=== PATIENT | female | born 1965 | race Caucasian/White ===

== ENCOUNTER 2017-08-11 12:26 | Inpatient (IN) | payer SELFPAY ==
[~2017-08-11] VITALS: Ht 157.5 cm; Wt 106.3 kg
[2017-08-11 12:30] VITALS: BP 142/74; PULSE 78; RESP 16; TEMP 97.6; O2SAT 95
--- NOTE | 2017-08-11 13:13 | PD ---
HPI Chief Complaint: Psychiatric Symptoms Time Seen by Provider: 13:11 Travel History International Travel<30 days: No Contact w/Intl Traveler<30days: No History of Present Illness HPI Patient comes in under a [place] act by police for reportedly making suicidal statements. Patient denies any suicidal or homicidal ideations at this time. Patient denies any medical complaints at this time. Denies any chest pain, shortness breath, fevers, no pain, nausea, vomiting, or loss or change in bowel or bladder. Patient reports she is a diabetic, anxiety, and has hypothyroidism. Patient reports she takes her medications as directed. Denies anything making her symptoms better or worse. PFSH Past Medical History Anxiety: Yes Depression: Yes Diabetes: Yes Thyroid Disease: Yes Social History Tobacco Use: No Allergies-Medications (Allergen,Severity, Reaction): Coded Allergies: No Known Allergies (Unverified , 08/11/17) Reported Meds & Prescriptions Reported Meds & Active Scripts Active Reported [Sugar Med] [Htn] Review of Systems Except as stated in HPI: all other systems reviewed are Neg Physical Exam Narrative GENERAL: Well-developed, overly nourished, in no acute distress, and non-ill appearing. SKIN: Focused skin assessment warm and dry. HEAD: Atraumatic. Normocephalic. EYES: Pupils equal and round. EOMI. No scleral icterus. No injection or drainage. ENT: No nasal bleeding or discharge. Mucous membranes pink and moist. NECK: Trachea midline. Supple. No nuclear rigidity. CARDIOVASCULAR: Regular rate and rhythm. No murmur appreciated. RESPIRATORY: No accessory muscle use. No respiratory distress. Clear to auscultation. Breath sounds equal bilaterally. MUSCULOSKELETAL: No obvious deformities. No clubbing. No cyanosis. No edema. Full range of motion. NEUROLOGICAL: Awake and alert. No obvious cranial nerve deficits. Motor grossly within normal limits. Normal speech. PSYCHIATRIC: Appropriate mood and affect; insight and judgment normal. Data Data Last Documented VS Vital Signs Date Time Temp Pulse Resp B/P (MAP) Pulse Ox O2 Delivery O2 Flow Rate FiO2 08/11/17 12:30 97.6 78 16 142/74 (96) 95 Orders Orders Complete Blood Count With Diff (08/11/17 12:54) Comprehensive Metabolic Panel (08/11/17 12:54) Psych Screen (08/11/17 12:54) Drug Screen, Random Urine (08/11/17 12:54) Alcohol (Ethanol) (08/11/17 12:54) Salicylates (Aspirin) (08/11/17 12:54) Tylenol (Acetaminophen) (08/11/17 12:54) Urinalysis - C+S If Indicated (08/11/17 14:42) Diet Regular Basic (08/11/17 Dinner) Labs Laboratory Tests Test 08/11/17 13:35 08/11/17 15:00 White Blood Count 14.6 TH/MM3 Red Blood Count 4.83 MIL/MM3 Hemoglobin 14.2 GM/DL Hematocrit 43.2 % Mean Corpuscular Volume 89.4 FL Mean Corpuscular Hemoglobin 29.4 PG Mean Corpuscular Hemoglobin Concent 32.9 % Red Cell Distribution Width 14.4 % Platelet Count 340 TH/MM3 Mean Platelet Volume 7.5 FL Neutrophils (%) (Auto) 65.9 % Lymphocytes (%) (Auto) 24.3 % Monocytes (%) (Auto) 7.9 % Eosinophils (%) (Auto) 1.4 % Basophils (%) (Auto) 0.5 % Neutrophils # (Auto) 9.6 TH/MM3 Lymphocytes # (Auto) 3.5 TH/MM3 Monocytes # (Auto) 1.2 TH/MM3 Eosinophils # (Auto) 0.2 TH/MM3 Basophils # (Auto) 0.1 TH/MM3 CBC Comment DIFF FINAL Differential Comment Blood Urea Nitrogen 13 MG/DL Creatinine 0.81 MG/DL Random Glucose 195 MG/DL Total Protein 8.0 GM/DL Albumin 3.1 GM/DL Calcium Level 9.4 MG/DL Alkaline Phosphatase 111 U/L Aspartate Amino Transf (AST/SGOT) 21 U/L Alanine Aminotransferase (ALT/SGPT) 33 U/L Total Bilirubin 0.5 MG/DL Sodium Level 133 MEQ/L Potassium Level 3.6 MEQ/L Chloride Level 99 MEQ/L Carbon Dioxide Level 23.1 MEQ/L Anion Gap 11 MEQ/L Estimat Glomerular Filtration Rate 74 ML/MIN Salicylates Level LESS THAN 1.7 MG/DL Acetaminophen Level LESS THAN 2.0 MCG/ML Ethyl Alcohol Level LESS THAN 3 MG/DL Urine Color YELLOW Urine Turbidity CLEAR Urine pH 6.5 Urine Specific [place] 1.011 Urine Protein 30 mg/dL Urine Glucose (UA) NEG mg/dL Urine Ketones NEG mg/dL Urine Occult Blood TRACE Urine Nitrite NEG Urine Bilirubin NEG Urine Urobilinogen LESS THAN 2.0 MG/DL Urine Leukocyte Esterase NEG Urine RBC LESS THAN 1 /hpf Urine WBC LESS THAN 1 /hpf Urine Squamous Epithelial Cells 1 /hpf Urine Hyaline Casts 4 /lpf Microscopic Urinalysis Comment CULT NOT INDICATED MDM Medical Decision Making Medical Screen Exam Complete: Yes Emergency Medical Condition: Yes Differential Diagnosis Homicidal, suicidal, electrolyte abnormality, uncontrolled diabetes, other Narrative Course Patient was seen and examined. Labs were obtained and reviewed with exception of a urine drug screen that has not resulted yet. Suspect a slightly elevated white blood cell count to be stress-induced. Patient medically cleared for further treatment and evaluation by psych. Final disposition per psych. Diagnosis Primary Impression: Medical clearance for psychiatric admission Condition: Stable Kevin Stinson Aug 11, 2017 13:13
[2017-08-11 13:59] LABS: AUTOMATED NEUTROPHIL # 9.6 TH/MM3 (1.8-7.7); BASOPHIL # 0.1 TH/MM3 (0-0.2); BASOPHIL % 0.5 % (0.0-2.0); EOSINOPHIL # 0.2 TH/MM3 (0-0.4); EOSINOPHIL % 1.4 % (0.0-4.0); HEMATOCRIT 43.2 % (35.0-46.0); HEMO FLAGS DIFF FINAL; LYMPH % 24.3 % (9.0-44.0); LYMPHOCYTE # 3.5 TH/MM3 (1.0-4.8); MEAN CELL VOLUME 89.4 FL (80.0-100.0); MEAN CORPUSCULAR HEMOGLOBIN 29.4 PG (27.0-34.0); MEAN CORPUSCULAR HGB CONC 32.9 % (32.0-36.0); MONO % 7.9 % (0.0-8.0); NEUT % 65.9 % (16.0-70.0); PLATELET COUNT 340 TH/MM3 (150-450); RED BLOOD COUNT 4.83 MIL/MM3 (4.00-5.30); RED CELL DISTRIBUTION WIDTH 14.4 % (11.6-17.2); WHITE BLOOD COUNT 14.6 TH/MM3 (4.0-11.0)
[2017-08-11 14:23] LABS: ALT (GPT) 33 U/L (10-53); ANION GAP 11 MEQ/L (5-15); AST (GOT) 21 U/L (15-37); BICARBONATE 23.1 MEQ/L (21.0-32.0); BLOOD UREA NITROGEN 13 MG/DL (7-18); CHLORIDE 99 MEQ/L (98-107); GLOMERULAR FILTRATION RATE 74 ML/MIN (>89); POTASSIUM 3.6 MEQ/L (3.5-5.1); SODIUM (NA) 133 MEQ/L (136-145)
[2017-08-11 14:24] LABS: ALCOHOL LESS THAN 3 MG/DL (0-5)
[2017-08-11 14:25] LABS: ALKALINE PHOSPHATASE 111 U/L (45-117); TOTAL BILIRUBIN ADULT 0.5 MG/DL (0.2-1.0)
[2017-08-11 14:48] LABS: ACETAMINOPHEN LESS THAN 2.0 MCG/ML (10.0-30.0)
[2017-08-11] MEDS ORDERED: HTN (15:23)
[2017-08-11] MEDS ORDERED: SUGAR MED (15:23)
[2017-08-11 15:50] LABS: BLOOD, URINE TRACE (NEG); COMMENT (UR) CULT NOT INDICATED; CULTURE IF INDICATED CULT NOT INDICATED; GLUCOSE,URINE NEG (NEG); HYALINE CAST, URINE 4 /lpf (RARE); KETONE, URINE NEG (NEG); NITRITE,URINE NEG (NEG); PH, URINE 6.5 (5.0-8.5); SQUAMOUS EPITHELIAL CELL URINE 1 /hpf (0-5); URINE COLOR YELLOW (YELLW/STRAW)
[2017-08-11 18:33] VITALS: BP 178/88; PULSE 62; RESP 18; O2SAT 93
[2017-08-11] MEDS ORDERED: cloNIDine HCL 0.1 MG TAB PO ONE (21:45)
[2017-08-11 21:59] VITALS: BP_SYST 220; BP_SYST 225; BP_DIAS 110; BP_DIAS 125; PULSE 160; RESP 18
[2017-08-12] VITALS (7 sets, daily range): BP systolic 96–210; BP diastolic 57–110; PULSE 56–71; RESP 16–18; TEMP 97.6–98; O2SAT 94–97
[2017-08-12] MEDS ORDERED: cloNIDine HCL 0.2 MG TAB PO ONE (00:30)
--- NOTE | 2017-08-12 11:06 | PD ---
History of Present Illness Chief Complaint: Psychiatric Symptoms Time Seen by Provider: 10:30 Travel History International Travel<30 Days: No Contact w/Intl Traveler<30days: No Known affected area: No Legal Status Legal Status: [place] Act [place] Act Signed By: Latricia Ruelas History of Present Illness: History of Present Illness HPI Patient is a 52 year old Nepalese female who speaks some Togolese with history of depression who comes in under a [place] act initiated by police. The [place] act alleges that notes were found in a hotel room that were written by the patient. These notes stated " You do not need to bury , I am leaving voluntarily. Who knows maybe there, where my family may meet me". She indicated to the police that she was suicidal and had thoughts hanging herself. EMR reviewed. No previous contact with [facility] psychiatry. Patient is alert female who speaks mostly Nepalese. She was asked if she wanted to use the fire support specialist and she declined. Dressed in hospital gown somewhat unkempt appearance.Affect is depressed. She admits to feeling depressed , low energy, sleeping all day, crying episodes, suicdal ideation and having ruminative thoughts which she describes as " memories of life". These memories include the of her father in 1987 from a heart attack, the suicide of her twin sister in 1997, the departure of her adopted son at age 19 years, possibly deported back to [place]. She also talks about not being able to have a child and having an .Recent stressors include the loss of her job in July. Patient does not appear to be responding to internal stimuli. She continues to endorse suicidal ideation and feeling unsafe if she were to be discharged. She reports that she takes medications but none are listed on her home medication. She tells me she [facility] " [facility]". [facility] Past Medical History Anxiety: Yes Depression: Yes Diabetes: Yes Patient Takes Glucophage: No (UNKNOWN) Thyroid Disease: Yes Tetanus Vaccination: Unknown ?: Not Past Surgical History Cholecystectomy: Yes Psychiatric History Psychiatric History Hx Psychiatric Treatment: DEPRESSION PER PATIENT History of Inpatient Treatment: No Guns or firearms in home: No Social History Born in [place]. In [place] since 2002. Prior to this was living in [place]. . Lives with . Unemployed. has worked in retail for many years. Hx Alcohol Use: No Hx Tobacco Use: No Hx Substance Use: No (PT DENIES) Hx of Substance Use Treatment: No Family Psychiatric History Twin sister completed suicide. Allergies-Medications (Allergen,Severity, Reaction): Coded Allergies: No Known Allergies (Unverified , 08/11/17) Reported Meds & Prescriptions Reported Meds & Active Scripts Active Reported [Sugar Med] [Htn] Review of Systems Ears, nose, mouth, throat: COMPLAINS OF: Vertigo Psychiatric: COMPLAINS OF: Depression, Suicidal Ideation Mental Status Examination Appearance: Appropriate, Disheveled Consciousness: Alert Orientation: x4 Motor Activity: Normal gait Speech: Other (language is Nepalese. ) Language: Adequate Fund of Knowledge: Adequate Attention and Concentration: Other (decreased concentration) Memory: Unremarkable Mood: Sad, Anxious, Other (depressed) Affect: Sad Thought Process & Associations: Intact Thought Content: Appropriate Hallucination Type: None Delusion Type: None Suicidal Ideation: Yes Suicidal Plan: Yes Suicidal Intention: Yes Homicidal Ideation: No Homicidal Plan: No Homicidal Intention: No Insight: Fair Judgment: Impulsive MDM Medical Decision Making Medical Record Reviewed: Yes Assessment/Plan Patient is a 52 year old Nepalese female who speaks some Togolese with history of depression who comes in under a [place] act initiated by police. The [place] act alleges that notes were found in a hotel room that were written by the patient. These notes stated " You do not need to bury , I am leaving voluntarily. Who knows maybe there, where my family may meet me". She indicated to the police that she was suicidal and had thoughts hanging herself. Patient continues to endorse symptoms of depression including depressed mood, crying episodes, increased sleep, ruminative thoughts, suicidal ideation. Although she tells me she is taking mediations none are listed on her medication list. Patient unable to contract for safety and requires inpatient treatment for further observation, initiation of medication and to maintain her safety. Orders Orders Complete Blood Count With Diff (08/11/17 12:54) Comprehensive Metabolic Panel (08/11/17 12:54) Psych Screen (08/11/17 12:54) Drug Screen, Random Urine (08/11/17 12:54) Alcohol (Ethanol) (08/11/17 12:54) Salicylates (Aspirin) (08/11/17 12:54) Tylenol (Acetaminophen) (08/11/17 12:54) Urinalysis - C+S If Indicated (08/11/17 14:42) Diet Regular Basic (08/11/17 Dinner) Clonidine (Catapres) (08/11/17 21:45) Clonidine (Catapres) (08/12/17 00:30) Diet Diabetic (08/12/17 Breakfast) Diet Regular Basic (08/12/17 Lunch) Results Vital Signs Date Time Temp Pulse Resp B/P (MAP) Pulse Ox O2 Delivery O2 Flow Rate FiO2 08/12/17 06:14 98.0 71 18 96/57 (70) 94 Room Air 08/12/17 04:09 71 18 115/71 (86) 08/12/17 02:00 18 08/12/17 01:44 56 18 181/86 (117) 08/12/17 00:30 59 08/12/17 00:05 56 210/110 (143) 08/11/17 21:59 160 18 225/125 (158) Room Air 220/110 (146) 08/11/17 18:33 62 18 178/88 (118) 93 Room Air 08/11/17 12:30 97.6 78 16 142/74 (96) 95 Laboratory Tests Test 08/11/17 13:35 08/11/17 15:00 08/11/17 20:15 White Blood Count 14.6 Red Blood Count 4.83 Hemoglobin 14.2 Hematocrit 43.2 Mean Corpuscular Volume 89.4 Mean Corpuscular Hemoglobin 29.4 Mean Corpuscular Hemoglobin Concent 32.9 Red Cell Distribution Width 14.4 Platelet Count 340 Mean Platelet Volume 7.5 Neutrophils (%) (Auto) 65.9 Lymphocytes (%) (Auto) 24.3 Monocytes (%) (Auto) 7.9 Eosinophils (%) (Auto) 1.4 Basophils (%) (Auto) 0.5 Neutrophils # (Auto) 9.6 Lymphocytes # (Auto) 3.5 Monocytes # (Auto) 1.2 Eosinophils # (Auto) 0.2 Basophils # (Auto) 0.1 CBC Comment DIFF FINAL Differential Comment Blood Urea Nitrogen 13 Creatinine 0.81 Random Glucose 195 Total Protein 8.0 Albumin 3.1 Calcium Level 9.4 Alkaline Phosphatase 111 Aspartate Amino Transf (AST/SGOT) 21 Alanine Aminotransferase (ALT/SGPT) 33 Total Bilirubin 0.5 Sodium Level 133 Potassium Level 3.6 Chloride Level 99 Carbon Dioxide Level 23.1 Anion Gap 11 Estimat Glomerular Filtration Rate 74 Salicylates Level LESS THAN 1.7 Acetaminophen Level LESS THAN 2.0 Ethyl Alcohol Level LESS THAN 3 Urine Color YELLOW Urine Turbidity CLEAR Urine pH 6.5 Urine Specific [place] 1.011 Urine Protein 30 Urine Glucose (UA) NEG Urine Ketones NEG Urine Occult Blood TRACE Urine Nitrite NEG Urine Bilirubin NEG Urine Urobilinogen LESS THAN 2.0 Urine Leukocyte Esterase NEG Urine RBC LESS THAN 1 Urine WBC LESS THAN 1 Urine Squamous Epithelial Cells 1 Urine Hyaline Casts 4 Microscopic Urinalysis Comment CULT NOT INDICATED Urine Opiates Screen NEG Urine Barbiturates Screen NEG Urine Amphetamines Screen NEG Urine Benzodiazepines Screen NEG Urine Cocaine Screen NEG Urine Cannabinoids Screen NEG Diagnosis Primary Impression: Medical clearance for psychiatric admission Additional Impression: Adjustment disorder with depressed mood Admitting Information Admitting Physician Requests: Admit Condition: Stable Problem Qualifiers Marii Land [facility] Aug 12, 2017 11:06
[2017-08-12] MEDS ORDERED: FURO1TAB60 PO (11:20)
[2017-08-12] MEDS ORDERED: AMLO10TA2 PO (11:20)
[2017-08-12] MEDS ORDERED: LISI10TA3 PO (11:20)
[2017-08-12] MEDS ORDERED: LEVO125T4 PO (11:20)
[2017-08-12] MEDS ORDERED: METF500T PO (11:20)
[2017-08-12] MEDS ORDERED: POTA-163 PO (11:20)
[2017-08-12] MEDS ORDERED: ALUMINUM/MAGNESIUM/SIMETH 30 ML CUP PO PRN (11:45)
[2017-08-12] MEDS ORDERED: MAGNESIUM HYDROXIDE SUSP 30 ML CUP PO PRN (11:45)
[2017-08-12] MEDS ORDERED: ACETAMINOPHEN 325 MG TAB PO PRN (11:45)
[2017-08-12] MEDS ORDERED: GLUCAGON 1 MG/ML VIAL OTHER PRN (14:30)
[2017-08-12] MEDS ORDERED: DEXTROSE 50% IN WATER 50 ML SYRINGE IV PUSH PRN (14:30)
[2017-08-12] MEDS: INSULIN ASPART SUPPLEMENTAL SCALE SQ SCH ×2 (17:00→20:24)
[2017-08-12] MEDS: metFORMIN HCL 500 MG TAB PO SCH (17:44)
[2017-08-13] MEDS: LEVOTHYROXINE SODIUM 125 MCG TAB PO SCH (05:15)
[2017-08-13 06:40] VITALS: BP 156/77; PULSE 55; RESP 18; TEMP 97.8; O2SAT 98
[2017-08-13] MEDS: INSULIN ASPART SUPPLEMENTAL SCALE SQ SCH ×4 (07:45→20:00)
[2017-08-13] MEDS: metFORMIN HCL 500 MG TAB PO SCH ×2 (08:34→18:08)
[2017-08-13] MEDS: LISINOPRIL 10 MG TAB PO SCH (08:34)
--- NOTE | 2017-08-13 08:53 | EKG ---
Date Performed: 08/13/2017 Time Performed: 07:34:06 PTAGE: 52 years EKG: SINUS BRADYCARDIA WITH FIRST DEGREE AV BLOCK LOW QRS VOLTAGE IN PRECORDIAL LEADS ABNORMAL E CG NO PREVIOUS TRACING DOCTOR: Keanu Vogt Interpretating Date/Time 08/13/2017 08:52:58
[2017-08-13] MEDS ORDERED: FUROSEMIDE 40 MG TAB PO SCH (09:00)
[2017-08-13] MEDS ORDERED: POTASSIUM CHLORIDE 20 MEQ CONTROLLED RELEASE TAB PO SCH (09:00)
[2017-08-13 10:22] LABS: ANION GAP 11 MEQ/L (5-15); BICARBONATE 26.6 MEQ/L (21.0-32.0); BLOOD UREA NITROGEN 18 MG/DL (7-18); CHLORIDE 99 MEQ/L (98-107); GLOMERULAR FILTRATION RATE 67 ML/MIN (>89); POTASSIUM 3.6 MEQ/L (3.5-5.1); SODIUM (NA) 137 MEQ/L (136-145)
[2017-08-13 10:51] LABS: HDL CHOLESTEROL 38.4 MG/DL (40.0-60.0); LDL CHOLESTEROL 116 MG/DL (0-99)
--- NOTE | 2017-08-13 11:25 | PD.PN.STU ---
Subjective Remarks Pt is a 52 y.o pleasant Chilean female who is at the inpatient psychiatric unit under heath act for "possible SI". Pt was brought in by Bibiana ALVAREZ after finding her in her hotel room, bent over the bathroom sink "feeling sick". Pt states that she has had a hx of depression >20 years. She reports losing all her family members within 5 years of her coming to the [facility] , 25 years ago. Her twin sister committed suicide which put a huge emotional toll on patient. After her sister's suicide she started taking medication for depression which she stopped taking several years after because " I didn't need them anymore". Pt has a 35 y.o son in [facility] which she does not see as often as she'd like. She currently lives with her . She reports losing a job that she has had for 8 years. After losing her job her depression became worse. Pt currently denies any suicidal or homicidal ideation. Also denies any auditory, or visual hallucinations. She states" I just want to feel better before being able to go home". Upon interview patient had depressed mood which was congruent with her affect. Objective Vitals Vital Signs Date Time Temp Pulse Resp B/P (MAP) Pulse Ox O2 Delivery O2 Flow Rate FiO2 08/13/17 06:40 97.8 55 18 156/77 (103) 98 08/12/17 17:47 08/12/17 13:53 97.6 68 16 105/60 (75) 97 Manual Cuff/Auscultation Result Diagram: 08/11/17 1335 08/13/17 0825 A/P Assessment and Plan 1. Major Depression Disorder- start patient on SSRI- refer to outpatient psychiatry 2. Insulin dependent DM - managed by PCP 3. HTN- managed by PCP Discharge Planning once stable, refer patient to outpatient psychiatric facility. educate pt on importance of adherence to medication contact 911 or refer to the ED if thoughts of suicide occur Tom Perez M3 Aug 13, 2017 11:25
--- NOTE | 2017-08-13 11:38 | PD.CONS ---
HPI Service [facility] Hospitalists Consult Requested By Psychiatric services Reason for Consult Medical management Primary Care Physician Unknown Diagnoses: History of Present Illness Written by Monse Muir, acting as scribe for Dr. Gibson on 08/13/17 at 11:26. This is a 52-year-old Ukrainian female with a past medical history of hypertension , diabetes and hypothyroidism who was admitted under [place] act with depression and suicidal ideation to the inpatient psychiatric unit. Hospitalist services have been consulted for medical management. Patient seen and examined. Patient states she felt "not so good". She reports dizziness, loss of balance and difficulty with walking which has been progressive over the past week. She states she's had increased depression and sleeping more. She also reports headaches and chills. She denies any complaints of chest pain, cough or shortness of breath. She denies any nausea, vomiting or abdominal pain. She denies any urinary complaints, diarrhea or constipation. She does report decreased sensation in the lower legs which she attributes to her diabetes. Review of Systems Except as stated in HPI: all other systems reviewed are Neg Past Family Social History Allergies: Coded Allergies: No Known Allergies (Unverified , 08/11/17) Past Medical History Hypertension Diabetes Hypothyroidism Depression Anxiety Past Surgical History Cholecystectomy Reported Medications Amlodipine 10 mg by mouth daily Lisinopril 10 mg by mouth daily Potassium chloride 20 mEq by mouth daily Furosemide 40 mg by mouth daily Metformin 500 mg by mouth twice a day Levothyroxine 125 g by mouth daily Active Ordered Medications Current Medications Medications (Trade) Dose Ordered Sig/Giovanny Route Start Time Stop Time Status Last Admin (Tylenol) 650 mg Q4H PRN PO 08/12/17 11:45 (Milk Of Magnesia Liq) 30 ml DAILY PRN PO 08/12/17 11:45 (Mag-Al Plus Susp Liq) 30 ml Q6H PRN PO 08/12/17 11:45 (Norvasc) 10 mg DAILY PO 08/13/17 09:00 08/13/17 08:34 (Lasix) 40 mg DAILY PO 08/13/17 09:00 08/13/17 08:34 (Synthroid) 125 mcg DAILY@0600 PO 08/13/17 06:00 08/13/17 05:15 (Prinivil) 10 mg DAILY PO 08/13/17 09:00 08/13/17 08:34 (Glucophage) 500 mg BIDPC PO 08/12/17 18:00 08/13/17 08:34 (KCl) 20 meq DAILY PO 08/13/17 09:00 08/13/17 08:34 (D50w (Syr) Inj) 50 ml UNSCH PRN IV PUSH 08/12/17 14:30 (Glucagon Inj) 1 mg UNSCH PRN OTHER 08/12/17 14:30 (NovoLOG SUPPLEMENTAL SCALE) 1 ACHS SLIDING SCALE SQ 08/12/17 17:00 08/12/17 17:00 Family History Father, age 46, [place] Plan sister, age 36, suicide Mother, age 54, CAD and diabetes Social History Patient reports tobacco use of 2-3 cigarettes per day. She reports rare alcohol consumption. She denies any illicit drug use. Physical Exam Vital Signs Vital Signs Date Time Temp Pulse Resp B/P (MAP) Pulse Ox O2 Delivery O2 Flow Rate FiO2 08/13/17 06:40 97.8 55 18 156/77 (103) 98 08/12/17 17:47 08/12/17 13:53 97.6 68 16 105/60 (75) 97 Manual Cuff/Auscultation Physical Exam GENERAL: This is a well-nourished, well-developed obese patient, in no apparent distress. Awake and alert. Appears comfortable at present. SKIN: No rashes, ecchymoses or lesions. Cool and dry. HEAD: Atraumatic. Normocephalic. No temporal or scalp tenderness. EYES: Pupils equal round and reactive. Extraocular motions intact. No scleral icterus. No injection or drainage. ENT: Nose without bleeding, purulent drainage. Throat without erythema, tonsillar hypertrophy or exudate. Uvula midline. Airway patent. NECK: Trachea midline. No lymphadenopathy. Supple, nontender, no meningeal signs. CARDIOVASCULAR: Regular rate and rhythm without murmurs, gallops, or rubs. RESPIRATORY: Clear to auscultation. Breath sounds equal bilaterally. No wheezes , rales, or rhonchi. GASTROINTESTINAL: Abdomen soft, nondistended. (+) Mild tenderness to deep palpation right upper quadrant. No hepato-splenomegaly, or palpable masses. No guarding. MUSCULOSKELETAL: Extremities without clubbing, cyanosis, or edema. No joint tenderness, effusion, or edema noted. No calf tenderness. NEUROLOGICAL: Awake and alert. Able to move all extremities spontaneously. Nonfocal. Normal speech. Laboratory Laboratory Tests Test 08/13/17 08:25 Blood Urea Nitrogen 18 Creatinine 0.88 Random Glucose 133 Calcium Level 9.7 Sodium Level 137 Potassium Level 3.6 Chloride Level 99 Carbon Dioxide Level 26.6 Anion Gap 11 Estimat Glomerular Filtration Rate 67 Triglycerides Level 362 Cholesterol Level 227 LDL Cholesterol 116 HDL Cholesterol 38.4 Cholesterol/HDL Ratio 5.91 Vitamin B12 Level 535 25-Hydroxy Vitamin D Total 6.8 Thyroid Stimulating Hormone 3rd Gen 4.480 Result Diagram: 08/11/17 1335 08/13/17 0825 Assessment and Plan Assessment and Plan 52-year-old Ukrainian female with a past medical history of hypertension, diabetes and hypothyroidism who was admitted under [place] act with depression and suicidal ideation to the inpatient psychiatric unit. Hospitalist services have been consulted for medical management. Depression Suicidal ideation Anxiety - Management per psychiatric team Hypertension - Patient continued on her home medications of amlodipine 10 mg daily, Lisinopril 10 mg daily and Lasix 40 mg daily - Continue potassium chloride 20 mg once daily - Monitor BP Diabetes - Hemoglobin A1c pending - Diabetic heart healthy diet - Continue patient on metformin 500 mg twice a day - Accu-Chek - Insulin sliding scale Leukocytosis - Suspect stress, reactive - Patient is afebrile - UA is negative - Patient does not appear septic - Repeat CBC to monitor white count RUQ pain - Mild - ? Significance - Will obtain LFTs - Monitor Hyponatremia - Resolved Hypothyroidism - Continue patient on home dose of levothyroxine - TSH 4.480 Dyslipidemia - ASCVD 10 yr risk 25% with recommendation of high intensity statin therapy - Will discuss beginning treatment with patient as well as lifestyle modification - Obtain LFTs Ongoing tobaccoism - Discussed importance of smoking cessation Vitamin D deficiency - Begin oral supplementation - Patient will need to have vitamin D level rechecked by her PCP in 3 months Thank you kindly for this consultation. Will continue to follow patient along with you. This note was transcribed by anmol Muir. I, Dr. Pawan Gibson personally performed the history, physical exam, and medical decision making; and confirmed the accuracy of the information in the transcribed note. Authenticated by Dr. Pawan Gibson on 08/13/17 at 13:28. Discussed Condition With Patient Monse Muir Aug 13, 2017 11:38 Pawan Gibson MD Aug 13, 2017 13:28
[2017-08-13] MEDS: busPIRone HCL 10 MG TAB PO SCH ×2 (12:58→20:24)
[2017-08-13] MEDS: DULoxetine HCl DR 60 MG CAP PO SCH (12:58)
--- NOTE | 2017-08-13 12:59 | HHI.HP ---
Provisional Diagnosis Admission Date Aug 12, 2017 at 11:40 Levels I. Major depressive disorder severe recurrent without psychosis F 33.2 Certification of Person's Competence To Provide Express and Informed Consent I have personally examined Yesi Wick , a [facility] on, Aug 13, 2017 12:32. Express and informed consent means consent voluntarily given in writing, by a competent person, after sufficient explanation and disclosure of the subject matter involved to enable the person to make a knowing and willful decision without any element of force, fraud, deceit, duress, or other form of constraint or coercion. This person is 18 years of age or older, is not now known to be incompetent to consent to treatment with a guardian advocate, and does not have a health care surrogate or proxy currently making medical treatment decisions. I have found this person to be one of the following: ] Competent to provide express and informed consent, as defined above, for voluntary admission to this facility and is competent to provide express and informed consent for treatment. He/she has the consistent capacity to make well reasoned, willful, and knowing decisions concerning his or her medical or mental health treatment. The person fully and consistently understands the purpose of the admission for examination/placement and is fully capable of personally exercising all rights assured under [place] Incompetent to provide express and informed consent to voluntary admission, and this is incompetent to provide express and informed consent to treatment. The person must be transferred to involuntary status and a petition for a guardian advocate filed with the Circuit Court. [xxx] Refusing to provide express and informed consent to voluntary admission but is competent to provide express and informed consent for treatment. The person must be discharged or transferred to involuntary status. Form shall be completed within 24 hours of a person's arrival at the receiving facility and filed in the clinical record of each person: 1. Admitted on a voluntary basis 2. Permitted to provide express and informed consent to his/her own treatment 3. Allowed to transfer from involuntary to voluntary status 4. Prior to permitting a person to consent to his or her own treatment after having been previously found incompetent to consent to treatment. History of Present Illness Capacity: Lacks Capacity (patient lacks capacity for admission, patient has capacity to sign for medications) Psych Chief Complaint: patient with depression wrote suicide implied notes HPI Patient is a 52-year-old [place] female who speaks moderately broken [place] Leonean comes here under a [place] act by the [facility] Sheriff's office dated at 11:17 AM that document reviewed and basically stating that the deputy responded to [address] reference to a welfare check to do the notes found by the Anupam Warren in the hotel these notes are written in [place]ib[place] one of the notes stated "you do not as to very, IM living voluntary. We will nose may be there where my family made meet me" police officers made several attempts to contact the patient and her residents which yielded negative results. Her vehicle was parked in the driveway with windows down contact was made with a Sgt. on how to proceed surgery problems advised that we will have the fire department come out and forced entry into the residents through the back sliding door. Once remained entry patient was bent over the sink in the bedroom. She advised she did not feel very good and wanted to be left alone. I asked her about the letters at the hotel she advised that she was thinking about suicide. She also advised that she had thought about this before and wanted to hang herself. She also advised that she takes medicine for depression there is substantial likelihood that without care or treatment she will cause bodily harm to herself with near future. Patient seen screened in the ED urine toxicology negative blood level negative. Patient seen in room 2600 with medical student hillary. Patient is a short stocky somewhat disheveled female who speaks broken [place]an. Stating of markedly dejected [place] will also somewhat histrionic with deep sighing breaths some moaning noted with poor eye contact. She is markedly tangential and circumstantial needing significant redirection by me to stay on topic. She states she lives with her of many years. It appears at times he may be somewhat authoritarian with her. She states she has a 20 year old son who lives locally but not with them. She makes some oblique statements about feeling depressed also by the fact that she is only one child. She may have had therapeutic abortions at the request of her . 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 Is also history of depression and suicide in the family with with her twin sister committing suicide in the of her parents. She denies alcohol or drug use with this she denies voices or visions. However she does state screen seen some type of a therapist with living in [place] and she may of had some psychiatric hospitalization in that area. At the present time patient does meet criteria for involuntary psychiatric hospitalization of the [place] act I'll do first opinion request second opinion that foot she does have capacity sign for medications. She received Cymbalta for a period of time at a clinic in but now where she paid $7. She may have switched counselors leading to increased payment for that medication. We need to investigate that. In the meantime we will restart her on her Cymbalta, since she stated she did well on that, and 60 mg daily. We will also add BuSpar 10 mg twice a day to the regimen. Continue her med reconciliation medical medications with the hospitalist also consult with us. Patient does have a abnormal EKG we will the hospitalist review that also. Hopeless to be fairly short stay recovery return to the family home with outpatient care of the community Review of Systems Constitutional: COMPLAINS OF: Fatigue, Dizziness Endocrine: DENIES: Abnorml menstrual pattern, Heat/cold intolerance, Polydipsia , Polyuria, Polyphagia Eyes: DENIES: Blurred vision, Diplopia, Eye inflammation, Eye pain, Vision loss , Photosensitivity, Double Vision Ears, nose, mouth, throat: DENIES: Tinnitus, Hearing loss, Vertigo, Nasal discharge, Oral lesions, Throat pain, Hoarseness, Ear Pain, Running Nose, Epistaxis, Sinus Pain, Toothache, Odynophagia Respiratory: DENIES: Apneas, Cough, Snoring, Wheezing, Hemoptysis, Sputum production, Shortness of breath Cardiovascular: DENIES: Chest pain, Palpitations, Syncope, Dyspnea on Exertion , PND, Lower Extremity Edema, Orthopnea, Claudication Gastrointestinal: DENIES: Abdominal pain, Black stools, Bloody stools, Constipation, Diarrhea, Nausea, Vomiting, Difficulty Swallowing, Anorexia Genitourinary: DENIES: Abnormal vaginal bleeding, Dysmenorrhea, Dyspareunia, Sexual dysfunction, Urinary frequency, Urinary incontinence, Urgency, Hematuria , Dysuria, Nocturia, Vaginal discharge Musculoskeletal: DENIES: Joint pain, Muscle aches, Stiffness, Joint Swelling, Back pain, Neck pain Integumentary: DENIES: Abnormal pigmentation, Pruritus, Rash, Nail changes, Breast masses, Breast skin changes, Nipple discharge Hematologic/lymphatic: DENIES: Bruising, Lymphadenopathy Immunologic/allergic: DENIES: Eczema, Urticaria Neurologic: DENIES: Abnormal gait, Headache, Localized weakness, Paresthesias, Seizures, Speech Problems, Tremor, Poor Balance Psychiatric: COMPLAINS OF: Anxiety, Depression, Suicidal Ideation Past Psych History Psychological trauma history Patient had her twin sister commit suicide, patient feels quite a bit of anxiety and separation when her son moved out Violence risk - others (6 mos) Low Violence risk - self (6 mos) Moderate Substance Abuse History Drugs/Alcohol past 12 months Denies Past Family Social History Coded Allergies: No Known Allergies (Unverified , 08/11/17) Reported Medications Amlodipine (Amlodipine) 10 Mg Tab, 10 MG PO DAILY for Blood Pressure Management , #30 TAB 0 Refills 08/12/17 Metformin (Metformin) 500 Mg Tab, 500 MG PO BIDPC for Blood Sugar Management, # 60 TAB 0 Refills 08/12/17 Furosemide (Lasix) 40 Mg Tab, 40 MG PO DAILY, #30 TAB 0 Refills 08/12/17 Levothyroxine (Levothyroxine) 125 Mcg Tab, 125 MCG PO DAILY for Thyroid, #30 TAB 0 Refills 08/12/17 Lisinopril (Lisinopril) 10 Mg Tab, 10 MG PO DAILY, #30 TAB 0 Refills 08/12/17 Potassium Chloride ER (Potassium Chloride ER) 20 Meq Tab, 20 MEQ PO DAILY for Electrolyte Replacement, #30 TAB 0 Refills 08/12/17 [Sugar Med] No Conflict Check 08/11/17 [Htn] No Conflict Check 08/11/17 Current Medications Medications (Trade) Dose Ordered Sig/Giovanny Route Start Time Stop Time Status Last Admin (Tylenol) 650 mg Q4H PRN PO 08/12/17 11:45 (Milk Of Magnesia Liq) 30 ml DAILY PRN PO 08/12/17 11:45 (Mag-Al Plus Susp Liq) 30 ml Q6H PRN PO 08/12/17 11:45 (Norvasc) 10 mg DAILY PO 08/13/17 09:00 08/13/17 08:34 (Lasix) 40 mg DAILY PO 08/13/17 09:00 08/13/17 08:34 (Synthroid) 125 mcg DAILY@0600 PO 08/13/17 06:00 08/13/17 05:15 (Prinivil) 10 mg DAILY PO 08/13/17 09:00 08/13/17 08:34 (Glucophage) 500 mg BIDPC PO 08/12/17 18:00 08/13/17 08:34 (KCl) 20 meq DAILY PO 08/13/17 09:00 08/13/17 08:34 (D50w (Syr) Inj) 50 ml UNSCH PRN IV PUSH 08/12/17 14:30 (Glucagon Inj) 1 mg UNSCH PRN OTHER 08/12/17 14:30 (NovoLOG SUPPLEMENTAL SCALE) 1 ACHS SLIDING SCALE SQ 08/12/17 17:00 08/12/17 17:00 Family Psych History Patient denies history of mental illness in family Social History Patient Lesa lives with has an adult son who lives independently Patient's Strengths (min. 2) Patient verbal able exercise self care Physical Exam Patient seen screened in ED exam reviewed and agreed with. Patient sitting quietly on that for a bed with episodes of deep breathing sighing, though in no respiratory distress. No complaints of abdominal pain. Able move all 4 extremities. We'll complains of generalized weakness Vital Signs Vital Signs Date Time Temp Pulse Resp B/P (MAP) Pulse Ox O2 Delivery O2 Flow Rate FiO2 08/13/17 06:40 97.8 55 18 156/77 (103) 98 08/12/17 06:14 Room Air Lab Results Test 08/13/17 08:25 Blood Urea Nitrogen 18 MG/DL Creatinine 0.88 MG/DL Random Glucose 133 MG/DL Calcium Level 9.7 MG/DL Sodium Level 137 MEQ/L Potassium Level 3.6 MEQ/L Chloride Level 99 MEQ/L Carbon Dioxide Level 26.6 MEQ/L Anion Gap 11 MEQ/L Estimat Glomerular Filtration Rate 67 ML/MIN Triglycerides Level 362 MG/DL Cholesterol Level 227 MG/DL LDL Cholesterol 116 MG/DL HDL Cholesterol 38.4 MG/DL Cholesterol/HDL Ratio 5.91 RATIO Vitamin B12 Level 535 PG/ML 25-Hydroxy Vitamin D Total 6.8 ng/ML Thyroid Stimulating Hormone 3rd Gen 4.480 uIU/ML Mental Status Examination Appearance: Appropriate, Disheveled Consciousness: Alert Orientation: x4 Motor Activity: Normal gait, Other (no complaints of leg weakness and instability is using a wheelchair) Speech: Hesitant, Slow, Other (speech very little [place] Leonean) Language: Adequate Fund of Knowledge: Adequate Attention and Concentration: Easily Distracted Memory: Unremarkable Mood: Sad, Anxious, Other (depressed) Affect: Other (decrease range increase intensity) Thought Process & Associations: Intact, Circumstantial, Tangential Thought Content: Appropriate Hallucination Type: None Delusion Type: None Suicidal Ideation: Yes Suicidal Plan: Yes Suicidal Intention: Yes Homicidal Ideation: No Homicidal Plan: No Homicidal Intention: No Insight: Poor Judgment: Poor Assessment & Plan Problem List: (1) Severe recurrent major depression without psychotic features ICD Codes: F33.2 - Major depressive disorder, recurrent severe without psychotic features Assessment & Plan Estimated LOS: 5-7 days patient continues majorly depressed, with a significant amount of overlying anxiety and somatization. We'll start patient on Cymbalta and BuSpar. We'll attempt to have meeting with patient's first part next week Discharge Planning Me to have family conference first part next week, plan to return patient to family home Request HC Surrog/Guard Advoc?: No Abhi Alonso MD Aug 13, 2017 12:59
[2017-08-13] MEDS ORDERED: ACETAMINOPHEN 325 MG TAB PO PRN (13:15)
[2017-08-13 13:29] LABS: AUTOMATED NEUTROPHIL # 4.3 TH/MM3 (1.8-7.7); BASOPHIL # 0.1 TH/MM3 (0-0.2); BASOPHIL % 0.5 % (0.0-2.0); EOSINOPHIL # 0.3 TH/MM3 (0-0.4); EOSINOPHIL % 2.9 % (0.0-4.0); HEMO FLAGS DIFF FINAL; LYMPH % 45.9 % (9.0-44.0); LYMPHOCYTE # 4.8 TH/MM3 (1.0-4.8); MEAN CORPUSCULAR HEMOGLOBIN 29.9 PG (27.0-34.0); MEAN CORPUSCULAR HGB CONC 32.8 % (32.0-36.0); MONO % 9.9 % (0.0-8.0); NEUT % 40.8 % (16.0-70.0); PLATELET COUNT 337 TH/MM3 (150-450); RED BLOOD COUNT 4.62 MIL/MM3 (4.00-5.30); RED CELL DISTRIBUTION WIDTH 14.5 % (11.6-17.2); WHITE BLOOD COUNT 10.5 TH/MM3 (4.0-11.0)
[2017-08-13 16:57] LABS: HEMOGLOBIN A1a 1.6 %; HEMOGLOBIN A1b 2.8 %; HEMOGLOBIN Ao 80.7 %; HEMOGLOBIN LA1C 2.6 %; HEMOGLOBIN P3 6.2 %
[2017-08-13 18:16] VITALS: BP 92/54; PULSE 52; RESP 16; TEMP 98.3; O2SAT 98
[2017-08-13 18:22] LABS: INDIRECT BILIRUBIN 0.3 MG/DL (0.0-0.8); TOTAL BILIRUBIN ADULT 0.4 MG/DL (0.2-1.0)
[2017-08-14 05:38] VITALS: BP 108/63; PULSE 72; RESP 17; TEMP 97.8; O2SAT 96
[2017-08-14] MEDS: LEVOTHYROXINE SODIUM 125 MCG TAB PO SCH (06:23)
[2017-08-14] MEDS: INSULIN ASPART SUPPLEMENTAL SCALE SQ SCH ×4 (08:20→21:00)
[2017-08-14] MEDS: CHOLECALCIFEROL (VIT D3) 1000 UNIT TAB PO SCH (09:25)
[2017-08-14] MEDS: DULoxetine HCl DR 60 MG CAP PO SCH (09:25)
[2017-08-14] MEDS: busPIRone HCL 10 MG TAB PO SCH ×2 (09:25→20:58)
[2017-08-14] MEDS: metFORMIN HCL 500 MG TAB PO SCH ×2 (09:26→18:05)
[2017-08-14] MEDS: ATORVASTATIN 40 MG TAB PO SCH (10:30)
--- NOTE | 2017-08-14 11:00 | HHI.PR ---
Subjective Remarks Follow-up on patient with hypertension, diabetes and hypothyroidism. Patient seen and examined. Patient with low BP this morning. She is complaining of dizziness and lightheadedness. She denies any fever or chills. Denies any chest pain or shortness of breath. Denies any nausea, vomiting or abdominal pain. Objective Vitals Vital Signs Date Time Temp Pulse Resp B/P (MAP) Pulse Ox O2 Delivery O2 Flow Rate FiO2 08/14/17 05:38 97.8 72 17 108/63 (78) 96 08/13/17 18:16 98.3 52 16 92/54 (67) 98 Result Diagram: 08/13/1782408/13/17824 Objective Remarks GENERAL: This is a well-nourished, well-developed obese patient, in no apparent distress. Awake and alert. Sitting on side of hospital bed. SKIN: Warm and dry. HEAD: Atraumatic. Normocephalic. EYES: Extraocular motions intact. No scleral icterus. No injection or drainage. ENT: Nose without bleeding, purulent drainage. Airway patent. MMM. NECK: Trachea midline. CARDIOVASCULAR: Regular rate and rhythm without murmurs, gallops, or rubs. RESPIRATORY: Clear to auscultation. Breath sounds equal bilaterally. No wheezes , rales, or rhonchi. GASTROINTESTINAL: Abdomen soft, nondistended, nontender. No hepato-splenomegaly , or palpable masses. No guarding. MUSCULOSKELETAL: Extremities without clubbing or cyanosis. Trace BLE edema. NEUROLOGICAL: Awake and alert. Able to move all extremities spontaneously. Nonfocal. Normal speech. Medications and IVs Current Medications Medications (Trade) Dose Ordered Sig/Giovanny Route Start Time Stop Time Status Last Admin (Tylenol) 650 mg Q4H PRN PO 08/12/17 11:45 (Milk Of Magnesia Liq) 30 ml DAILY PRN PO 08/12/17 11:45 (Mag-Al Plus Susp Liq) 30 ml Q6H PRN PO 08/12/17 11:45 (Norvasc) 10 mg DAILY PO 08/13/17 09:00 Future Hold 08/13/17 08:34 (Lasix) 40 mg DAILY PO 08/13/17 09:00 Future Hold 08/13/17 08:34 (Synthroid) 125 mcg DAILY@0600 PO 08/13/17 06:00 08/14/17 06:23 (Prinivil) 10 mg DAILY PO 08/13/17 09:00 Future Hold 08/13/17 08:34 (Glucophage) 500 mg BIDPC PO 08/12/17 18:00 08/14/17 09:26 (KCl) 20 meq DAILY PO 08/13/17 09:00 Future Hold 08/13/17 08:34 (D50w (Syr) Inj) 50 ml UNSCH PRN IV PUSH 08/12/17 14:30 (Glucagon Inj) 1 mg UNSCH PRN OTHER 08/12/17 14:30 (NovoLOG SUPPLEMENTAL SCALE) 1 ACHS SLIDING SCALE SQ 08/12/17 17:00 08/14/17 08:20 (Cymbalta Dr) 60 mg DAILY PO 08/13/17 13:00 08/14/17 09:25 (Buspar) 10 mg Q12HR PO 08/13/17 13:00 08/14/17 09:25 (Vitamin D3) 2,000 units DAILY PO 08/14/17 09:00 08/14/17 09:25 (Lipitor) 40 mg DAILY PO 08/14/17 09:30 08/14/17 10:30 A/P Assessment and Plan 52-year-old Czech female with a past medical history of hypertension, diabetes and hypothyroidism who was admitted under [place] act with depression and suicidal ideation to the inpatient psychiatric unit. Hospitalist services have been consulted for medical management. Depression Suicidal ideation Anxiety - Management per psychiatric team Hypertension - Now hypotensive, symptomatic - Hold home medications of amlodipine 10 mg daily, Lisinopril 10 mg daily and Lasix 40 mg daily - Advised patient to not get up without assistance. Discussed with nursing staff as well. - Fall precautions - Monitor BP Diabetes Diabetic neuropathy - Hemoglobin A1c 7.0 - Blood sugars adequately controlled - Diabetic heart healthy diet - Continue patient on metformin 500 mg twice a day - Accu-Chek - Insulin sliding scale - PT eval/tx Leukocytosis - Suspect stress, reactive - Patient is afebrile - UA is negative - Resolved RUQ pain - Resolved - Monitor Hypothyroidism - Continue patient on home dose of levothyroxine - TSH 4.480 Dyslipidemia - ASCVD 10 yr risk 25% with recommendation of high intensity statin therapy - LFTs WNL - Discussed initiation of statin therapy which patient is agreeable to. She is concerned about cost of medication. Also discussed lifestyle modifications including regular home exercise program, dietary changes, smoking cessation. Consult case management. - Lipitor 40mg po daily. Patient will need a follow-up with PCP and have lipid panel rechecked in 2-3 months. Ongoing tobaccoism - Discussed importance of smoking cessation Vitamin D deficiency - Continue oral supplementation - Patient will need to have vitamin D level rechecked by her PCP in 3 months Discussed with patient, nursing staff and Monse Lugo Aug 14, 2017 11:00
--- NOTE | 2017-08-14 13:35 | HHI.PYPN ---
Subjective Remarks This is a request for second opinion. Admission note was reviewed, case was discussed with nursing, and interview conducted with patient in [place]ian. Patient describes various stressors leading to depressive symptoms for the past couple of months. Main stressors losing her job and fears that she could not find another because of her health conditions. She is depressed, constricted, with poor appetite, today, patient denies suicidal or homicidal thoughts ideation intent or plan. She has been feeling dizzy and is being evaluated by the medical team. Patient says she was taking Cymbalta 30 mg consistently and does not believe that her dizziness is instigated by her psychiatric medications Chief Complaint: patient with depression wrote suicide implied notes Mental Status Examination Appearance: Appropriate, Disheveled Consciousness: Alert Orientation: x4 Motor Activity: Normal gait, Other (no complaints of leg weakness and instability is using a wheelchair) Speech: Hesitant, Slow, Other (speech very little [place]) Language: Adequate Fund of Knowledge: Adequate Attention and Concentration: Adequate Memory: Unremarkable Mood: Sad, Anxious, Other (depressed) Affect: Other (decrease range increase intensity) Thought Process & Associations: Intact Thought Content: Appropriate Hallucination Type: None Delusion Type: None Suicidal Ideation: No Suicidal Plan: No Suicidal Intention: No Homicidal Ideation: No Homicidal Plan: No Homicidal Intention: No Insight: Fair Judgment: Poor Results Vitals/IOs Vital Signs Date Time Temp Pulse Resp B/P (MAP) Pulse Ox O2 Delivery O2 Flow Rate FiO2 08/14/17 05:38 97.8 72 17 108/63 (78) 96 08/12/17 06:14 Room Air Assessment & Plan Problem List: (1) Severe recurrent major depression without psychotic features ICD Codes: F33.2 - Major depressive disorder, recurrent severe without psychotic features Assessment & Plan I agree with the first opinion to continue petition. Criteria include suicidal ideation and depressed mood Justification for Cont. Inpt. Patient would decompensate in a less restrictive setting Request HC Surrog/Guard Advoc?: No Richard Ziegler DO Aug 14, 2017 13:35
[2017-08-14 18:00] VITALS: BP 112/55; PULSE 91; RESP 18; TEMP 98.1; O2SAT 97
[2017-08-14 19:00] VITALS: BP 125/65; PULSE 63
[2017-08-15] MEDS: LEVOTHYROXINE SODIUM 125 MCG TAB PO SCH (05:41)
[2017-08-15 05:45] VITALS: BP 105/54; PULSE 62; RESP 17; TEMP 98.2; O2SAT 96
[2017-08-15 06:00] VITALS: BP 104/58; PULSE 68
[2017-08-15] MEDS: INSULIN ASPART SUPPLEMENTAL SCALE SQ SCH ×4 (08:00→20:18)
[2017-08-15] MEDS: ATORVASTATIN 40 MG TAB PO SCH (09:28)
[2017-08-15] MEDS: CHOLECALCIFEROL (VIT D3) 1000 UNIT TAB PO SCH (09:28)
[2017-08-15] MEDS: metFORMIN HCL 500 MG TAB PO SCH ×2 (09:28→17:53)
[2017-08-15] MEDS: busPIRone HCL 10 MG TAB PO SCH ×2 (09:28→20:18)
[2017-08-15] MEDS: DULoxetine HCl DR 60 MG CAP PO SCH (09:29)
--- NOTE | 2017-08-15 09:49 | HHI.PR ---
Subjective Remarks Follow-up on patient with hypertension, diabetes and hypothyroidism. Patient seen and examined today. Patient states she is still dizzy but it is improved. Continues to have low blood pressure. She denies any other complaints. Denies any fever or chills. Denies any chest pain or shortness of breath. Denies any nausea, vomiting or abdominal pain. Objective Vitals Vital Signs Date Time Temp Pulse Resp B/P (MAP) Pulse Ox O2 Delivery O2 Flow Rate FiO2 08/15/17 06:00 68 104/58 (73) Automatic Cuff 08/15/17 05:45 98.2 62 17 105/54 (71) 96 08/14/17 19:00 63 125/65 (85) 08/14/17 18:00 98.1 91 18 112/55 (74) 97 Result Diagram: 08/13/1782408/13/17824 Objective Remarks GENERAL: This is a well-nourished, well-developed obese patient, in no apparent distress. Awake and alert. Lying in hospital bed. SKIN: Warm and dry. HEAD: Atraumatic. Normocephalic. EYES: Extraocular motions intact. No scleral icterus. No injection or drainage. ENT: Nose without bleeding, purulent drainage. Airway patent. MMM. NECK: Trachea midline. CARDIOVASCULAR: Regular rate and rhythm without murmurs, gallops, or rubs. RESPIRATORY: Clear to auscultation. Breath sounds equal bilaterally. No wheezes , rales, or rhonchi. GASTROINTESTINAL: Abdomen soft, nondistended, nontender. No hepato-splenomegaly , or palpable masses. No guarding. MUSCULOSKELETAL: Extremities without clubbing or cyanosis. Trace BLE edema. NEUROLOGICAL: Awake and alert. Able to move all extremities spontaneously. Nonfocal. Normal speech. Medications and IVs Current Medications Medications (Trade) Dose Ordered Sig/Giovanny Route Start Time Stop Time Status Last Admin (Tylenol) 650 mg Q4H PRN PO 08/12/17 11:45 (Milk Of Magnesia Liq) 30 ml DAILY PRN PO 08/12/17 11:45 (Mag-Al Plus Susp Liq) 30 ml Q6H PRN PO 08/12/17 11:45 (Norvasc) 10 mg DAILY PO 08/13/17 09:00 Future Hold 08/13/17 08:34 (Lasix) 40 mg DAILY PO 08/13/17 09:00 Future Hold 08/13/17 08:34 (Synthroid) 125 mcg DAILY@0600 PO 08/13/17 06:00 08/15/17 05:41 (Prinivil) 10 mg DAILY PO 08/13/17 09:00 Future Hold 08/13/17 08:34 (Glucophage) 500 mg BIDPC PO 08/12/17 18:00 08/15/17 09:28 (KCl) 20 meq DAILY PO 08/13/17 09:00 Future Hold 08/13/17 08:34 (D50w (Syr) Inj) 50 ml UNSCH PRN IV PUSH 08/12/17 14:30 (Glucagon Inj) 1 mg UNSCH PRN OTHER 08/12/17 14:30 (NovoLOG SUPPLEMENTAL SCALE) 1 ACHS SLIDING SCALE SQ 08/12/17 17:00 08/14/17 17:00 (Cymbalta Dr) 60 mg DAILY PO 08/13/17 13:00 08/15/17 09:29 (Buspar) 10 mg Q12HR PO 08/13/17 13:00 08/15/17 09:28 (Vitamin D3) 2,000 units DAILY PO 08/14/17 09:00 08/15/17 09:28 (Lipitor) 40 mg DAILY PO 08/14/17 09:30 08/15/17 09:28 A/P Assessment and Plan 52-year-old [place] female with a past medical history of hypertension, diabetes and hypothyroidism who was admitted under [place] act with depression and suicidal ideation to the inpatient psychiatric unit. Hospitalist services have been consulted for medical management. Depression Suicidal ideation Anxiety - Management per psychiatric team Hypertension - Now hypotensive, symptomatic. Improving. Encouraged increase in by mouth intake. - Continue to hold home medications of amlodipine 10 mg daily, Lisinopril 10 mg daily and Lasix 40 mg daily - Advised patient to not get up without assistance. Discussed with nursing staff as well. - Fall precautions - Monitor BP. Orthostatic BP measurement ordered. Diabetes Diabetic neuropathy - Hemoglobin A1c 7.0 - Blood sugars adequately controlled - Diabetic heart healthy diet - Continue patient on metformin 500 mg twice a day - Accu-Chek - Insulin sliding scale - Continue with PT RUQ pain - Resolved - Monitor Hypothyroidism - Continue patient on home dose of levothyroxine - TSH 4.480 Dyslipidemia - ASCVD 10 yr risk 25% with recommendation of high intensity statin therapy - LFTs WNL - Discussed initiation of statin therapy which patient is agreeable to. She is concerned about cost of medication. Also discussed lifestyle modifications including regular home exercise program, dietary changes, smoking cessation. Consult case management. - Lipitor 40mg po daily. Patient will need a follow-up with PCP and have lipid panel rechecked in 2-3 months. Ongoing tobaccoism - Discussed importance of smoking cessation Vitamin D deficiency - Continue oral supplementation - Patient will need to have vitamin D level rechecked by her PCP in 3 months Discussed with patient, nursing staff and Monse Lugo Aug 15, 2017 09:49
--- NOTE | 2017-08-15 13:03 | HHI.PYPN ---
Subjective Remarks Patient was seen and case discussed with nursing. Patient is brighter compared to yesterday. She notices an improvement in mood and feels "depression is lifting." No longer has suicidal ideation. No longer feeling hopeless. Psychoeducation was done in therapy was recommended. She is feeling less dizzy but still feels unstable on her feet. Was asked to stay in a wheelchair for now. Continues to be followed by medicine Chief Complaint: patient with depression wrote suicide implied notes Mental Status Examination Appearance: Appropriate, Disheveled Consciousness: Alert Orientation: x4 Motor Activity: Normal gait, Other (no complaints of leg weakness and instability is using a wheelchair) Speech: Hesitant, Slow, Other (speech very little Croatian) Language: Adequate Fund of Knowledge: Adequate Attention and Concentration: Adequate Memory: Unremarkable Mood: Sad, Anxious Affect: Blunt Thought Process & Associations: Intact Thought Content: Appropriate Hallucination Type: None Delusion Type: None Suicidal Ideation: No Suicidal Plan: No Suicidal Intention: No Homicidal Ideation: No Homicidal Plan: No Homicidal Intention: No Insight: Fair Judgment: Poor Results Vitals/IOs Vital Signs Date Time Temp Pulse Resp B/P (MAP) Pulse Ox O2 Delivery O2 Flow Rate FiO2 08/15/17 06:00 68 104/58 (73) Automatic Cuff 08/15/17 05:45 98.2 17 96 08/12/17 06:14 Room Air Assessment & Plan Problem List: (1) Severe recurrent major depression without psychotic features ICD Codes: F33.2 - Major depressive disorder, recurrent severe without psychotic features Assessment & Plan Continue current treatment plan Justification for Cont. Inpt. Patient will decompensate in a less restrictive setting Request HC Surrog/Guard Advoc?: No Richard Ziegler DO Aug 15, 2017 13:03
[2017-08-15 17:01] VITALS: BP 174/88; PULSE 97; RESP 18; TEMP 98.7; O2SAT 96
[2017-08-16] MEDS: LEVOTHYROXINE SODIUM 125 MCG TAB PO SCH (05:42)
[2017-08-16 06:09] VITALS: BP 140/80; PULSE 80; RESP 17; TEMP 98; O2SAT 100
[2017-08-16] MEDS: CHOLECALCIFEROL (VIT D3) 1000 UNIT TAB PO SCH (08:59)
[2017-08-16] MEDS: DULoxetine HCl DR 60 MG CAP PO SCH (09:00)
[2017-08-16] MEDS: busPIRone HCL 10 MG TAB PO SCH ×2 (09:00→20:41)
[2017-08-16] MEDS: INSULIN ASPART SUPPLEMENTAL SCALE SQ SCH ×4 (09:00→20:41)
[2017-08-16] MEDS: ATORVASTATIN 40 MG TAB PO SCH (09:00)
[2017-08-16] MEDS: metFORMIN HCL 500 MG TAB PO SCH ×2 (09:01→18:12)
--- NOTE | 2017-08-16 10:57 | HHI.PR ---
Subjective Remarks Follow-up visit HTN with hypotension, DM, hypothyroidism. Patient seen and examined today. Reports she is doing better. Episodes of dizziness have improved. States that she is now able to walk from her bedroom to the great room without feeling too dizzy. Denies pain and discomfort. Denies SOB/ dyspnea. Denies chest pain, palpitations, headaches. Denies fevers, chills, n/v /d. Denies dysuria. Objective Vitals Vital Signs Date Time Temp Pulse Resp B/P (MAP) Pulse Ox O2 Delivery O2 Flow Rate FiO2 08/16/17 06:09 98.0 80 17 140/80 (100) 100 08/15/17 17:01 98.7 97 18 174/88 (116) 96 Result Diagram: 08/13/1782408/13/17824 Objective Remarks GENERAL: This is a well-nourished, well-developed patient, in no apparent distress. SKIN: Warm and dry. HEENT: Normocephalic. Pupils equal round and reactive. Nose without bleeding. Airway patent. NECK: Trachea midline. Supple. CARDIOVASCULAR: Regular rate and rhythm without murmurs, gallops, or rubs. RESPIRATORY: Clear to auscultation. Breath sounds equal bilaterally. No wheezes , rales, or rhonchi. GASTROINTESTINAL: Abdomen soft, non-tender, nondistended. Bowel Sounds normoactive x4. MUSCULOSKELETAL: Extremities without clubbing, cyanosis, or edema. NEUROLOGICAL: Awake and alert. Oriented to time, place, person. No focal neuro deficit. Moves all extremities. Normal speech. A/P Problem List: (1) HTN (hypertension) ICD Code: I10 - Essential (primary) hypertension (2) DM type 2 (diabetes mellitus, type 2) ICD Code: E11.9 - Type 2 diabetes mellitus without complications (3) Severe recurrent major depression without psychotic features ICD Code: F33.2 - Major depressive disorder, recurrent severe without psychotic features Assessment and Plan 52-year-old [place] female with a past medical history of hypertension, diabetes and hypothyroidism who was admitted under [facility] act with depression and suicidal ideation to the inpatient psychiatric unit. Hospitalist services have been consulted for medical management. Depression Suicidal ideation Anxiety - Management per psychiatric team Dizziness - ? related to hypotension, but still continues to complain even if BP is wnl - may try meclizine - Check orthostatic BP Hypertension - episodes of hypotensive, symptomatic. Improving. Encouraged increase in by mouth intake. - Continue to hold home medications of amlodipine 10 mg daily, Lisinopril 10 mg daily and Lasix 40 mg daily - Advised patient to not get up without assistance. Discussed with nursing staff as well. - Fall precautions - Monitor BP. If BP trend is elevated will restart lisinopril - Improved DM 2, controlled Diabetic neuropathy - Hemoglobin A1c 7.0 - Blood sugars adequately controlled - Diabetic heart healthy diet - Continue patient on metformin 500 mg twice a day - Accu-Chek - Insulin sliding scale - Continue with PT Hypothyroidism - Continue patient on home dose of levothyroxine - TSH 4.480 Dyslipidemia - ASCVD 10 yr risk 25% with recommendation of high intensity statin therapy - LFTs WNL - Discussed initiation of statin therapy which patient is agreeable to. She is concerned about cost of medication. Also discussed lifestyle modifications including regular home exercise program, dietary changes, smoking cessation. Consult case management. - Lipitor 40mg po daily. Patient will need a follow-up with PCP and have lipid panel rechecked in 2-3 months. Tobacco use - Discussed importance of smoking cessation - Nicotine patch Vitamin D deficiency - Continue oral supplementation - Patient will need to have vitamin D level rechecked by her PCP in 3 months Discussed with patient, nursing, and Nikolas White Aug 16, 2017 10:57
[2017-08-16 15:00] VITALS: BP_SYST 154; BP_SYST 156; BP_SYST 160; BP_DIAS 90; BP_DIAS 96
--- NOTE | 2017-08-16 16:34 | HHI.PYPN ---
Subjective Remarks Patient seen in her room with nurse Jose F and medical student hillary, patient somewhat calmer more focused. Though still appears depressed, now denies suicidality voices or visions. Says she's had a good conversation with her . For now continue treatment. Hospitalist continue to work with a blood pressure issues Chief Complaint: patient with depression wrote suicide implied notes Review of Systems Except as stated in HPI: all other systems reviewed are Neg Mental Status Examination Appearance: Appropriate, Disheveled Consciousness: Alert Orientation: x4 Motor Activity: Normal gait, Other (no complaints of leg weakness and instability is using a wheelchair) Speech: Hesitant, Slow, Other (speech very little Citizen [place]) Language: Adequate Fund of Knowledge: Adequate Attention and Concentration: Adequate Memory: Unremarkable Mood: Sad, Anxious Affect: Blunt Thought Process & Associations: Intact Thought Content: Appropriate Hallucination Type: None Delusion Type: None Suicidal Ideation: No Suicidal Plan: No Suicidal Intention: No Homicidal Ideation: No Homicidal Plan: No Homicidal Intention: No Insight: Fair Judgment: Poor Results Vitals/IOs Vital Signs Date Time Temp Pulse Resp B/P (MAP) Pulse Ox O2 Delivery O2 Flow Rate FiO2 08/16/17 15:00 160/96 (117) 156/90 (112) 154/90 (111) 08/16/17 06:09 98.0 80 17 100 Assessment & Plan Problem List: (1) Severe recurrent major depression without psychotic features ICD Codes: F33.2 - Major depressive disorder, recurrent severe without psychotic features Assessment & Plan Estimated LOS: days patient continues depressed with slow lift, now denies suicidality, hospitalist continue to work with hypertensive issues Justification for Cont. Inpt. At this time patient will decompensate and placed a lower level of care Discharge Planning Patient appears to be getting somewhat better but still medical issues that need to be resolved. It appears placement of be back in the family home Request HC Surrog/Guard Advoc?: No Abhi Alonso MD Aug 16, 2017 16:34
[2017-08-16 17:41] VITALS: BP 159/74; PULSE 92; RESP 18; TEMP 98.1; O2SAT 95
[2017-08-17 00:32] VITALS: BP 148/78; PULSE 87; RESP 18; TEMP 98.3; O2SAT 97
[2017-08-17] MEDS: LEVOTHYROXINE SODIUM 125 MCG TAB PO SCH (05:58)
[2017-08-17 06:23] VITALS: BP 166/92; PULSE 79; RESP 17; TEMP 98.2; O2SAT 96
[2017-08-17] MEDS: INSULIN ASPART SUPPLEMENTAL SCALE SQ SCH ×4 (08:00→20:38)
[2017-08-17] MEDS: busPIRone HCL 10 MG TAB PO SCH ×2 (08:52→20:38)
[2017-08-17] MEDS: CHOLECALCIFEROL (VIT D3) 1000 UNIT TAB PO SCH (08:52)
[2017-08-17] MEDS: metFORMIN HCL 500 MG TAB PO SCH ×2 (08:52→17:12)
[2017-08-17] MEDS: ATORVASTATIN 40 MG TAB PO SCH (08:52)
[2017-08-17] MEDS: DULoxetine HCl DR 60 MG CAP PO SCH (08:52)
[2017-08-17] MEDS: LISINOPRIL 10 MG TAB PO SCH (08:52)
--- NOTE | 2017-08-17 13:40 | HHI.PR ---
Subjective Remarks Follow-up visit HTN with hypotension, DM, hypothyroidism. Patient seen and examined today. She is sitting in the day room. States she is feeling a lot better. Denies headaches, dizziness, chest pain, palpitations. Denies pain and discomfort. Denies SOB/ dyspnea. Denies fevers, chills, n/v/d. Objective Vitals Vital Signs Date Time Temp Pulse Resp B/P (MAP) Pulse Ox O2 Delivery O2 Flow Rate FiO2 08/17/17 06:23 98.2 79 17 166/92 (116) 96 08/17/17 00:32 98.3 87 18 148/78 (101) 97 08/16/17 17:41 98.1 92 18 159/74 (102) 95 08/16/17 15:00 160/96 (117) 156/90 (112) 154/90 (111) Result Diagram: 08/13/1782408/13/17824 Objective Remarks GENERAL: This is a well-nourished, well-developed patient, in no apparent distress. SKIN: Warm and dry. HEENT: Normocephalic. Pupils equal round and reactive. Nose without bleeding. Airway patent. NECK: Trachea midline. Supple. CARDIOVASCULAR: Regular rate and rhythm without murmurs, gallops, or rubs. RESPIRATORY: Clear to auscultation. Breath sounds equal bilaterally. No wheezes , rales, or rhonchi. GASTROINTESTINAL: Abdomen soft, non-tender, nondistended. Bowel Sounds normoactive x4. MUSCULOSKELETAL: Extremities without clubbing, cyanosis, or edema. NEUROLOGICAL: Awake and alert. Oriented to time, place, person. No focal neuro deficit. Moves all extremities. Normal speech. A/P Problem List: (1) HTN (hypertension) ICD Code: I10 - Essential (primary) hypertension (2) DM type 2 (diabetes mellitus, type 2) ICD Code: E11.9 - Type 2 diabetes mellitus without complications (3) Severe recurrent major depression without psychotic features ICD Code: F33.2 - Major depressive disorder, recurrent severe without psychotic features Assessment and Plan 52-year-old [place] female with a past medical history of hypertension, diabetes and hypothyroidism who was admitted under [facility] act with depression and suicidal ideation to the inpatient psychiatric unit. Hospitalist services have been consulted for medical management. Depression Suicidal ideation Anxiety - Management per psychiatric team Dizziness - ? related to hypotension - may try meclizine - Orthostatic BP is not show any drop in blood pressure - Improved Hypertension - episodes of hypotensive, symptomatic. Improving. Encouraged increase in by mouth intake. - Continue to hold home medications of amlodipine 10 mg daily, Lisinopril 10 mg daily and Lasix 40 mg daily - Advised patient to not get up without assistance. Discussed with nursing staff as well. - Fall precautions - Monitor BP. If BP trend is elevated will restart lisinopril - Restarted lisinopril, elevated BP will increase lisinopril dose. Continue to hold off other BP meds. Possibly pre renal secondary to hypertensive nephropathy vs diabetic nephropathy DM 2, controlled Diabetic neuropathy - Hemoglobin A1c 7.0 - Blood sugars adequately controlled - Diabetic heart healthy diet - Continue patient on metformin 500 mg twice a day - Accu-Chek - Insulin sliding scale - Continue with PT Hypothyroidism - Continue patient on home dose of levothyroxine - TSH 4.480 Dyslipidemia - ASCVD 10 yr risk 25% with recommendation of high intensity statin therapy - LFTs WNL - Discussed initiation of statin therapy which patient is agreeable to. She is concerned about cost of medication. Also discussed lifestyle modifications including regular home exercise program, dietary changes, smoking cessation. Consult case management. - Lipitor 40mg po daily. Patient will need a follow-up with PCP and have lipid panel rechecked in 2-3 months. Tobacco use - Discussed importance of smoking cessation - Nicotine patch Vitamin D deficiency - Continue oral supplementation - Patient will need to have vitamin D level rechecked by her PCP in 3 months Discussed with patient, nursing, and Dr. Pretty If blood pressure trend stable by tomorrow will clear for medical discharge in the morning. Nikolas Hollis Aug 17, 2017 13:40
--- NOTE | 2017-08-17 14:27 | HHI.PYPN ---
Subjective Remarks Patient seen in day room with nurse Viki and medical student hillary, chart review, patient compliant medications. Patient mood is improving she now denies suicidality homicidality voices or visions, has had good conversation with family and wishes to be discharged. It appears she has reached maximum benefit of this hospitalization. Will request medical clearance from medicine service for discharge today or tomorrow Chief Complaint: patient with depression wrote suicide implied notes Review of Systems Except as stated in HPI: all other systems reviewed are Neg Mental Status Examination Appearance: Appropriate, Disheveled Consciousness: Alert Orientation: x4 Motor Activity: Normal gait, Other (no complaints of leg weakness and instability is using a wheelchair) Speech: Hesitant, Slow, Other (speech very little French) Language: Adequate Fund of Knowledge: Adequate Attention and Concentration: Adequate Memory: Unremarkable Mood: Sad, Anxious Affect: Blunt Thought Process & Associations: Intact Thought Content: Appropriate Hallucination Type: None Delusion Type: None Suicidal Ideation: No Suicidal Plan: No Suicidal Intention: No Homicidal Ideation: No Homicidal Plan: No Homicidal Intention: No Insight: Fair Judgment: Poor Results Vitals/IOs Vital Signs Date Time Temp Pulse Resp B/P (MAP) Pulse Ox O2 Delivery O2 Flow Rate FiO2 08/17/17 06:23 98.2 79 17 166/92 (116) 96 Assessment & Plan Problem List: (1) Severe recurrent major depression without psychotic features ICD Codes: F33.2 - Major depressive disorder, recurrent severe without psychotic features Assessment & Plan Estimated LOS: days patient mood improving now denies suicidality homicidality voices or visions. We'll need to get hospitalist medical clearance for discharge Justification for Cont. Inpt. Patient improving needs medical clearance related to her severe hypertension for discharge Discharge Planning Plan a patient returning home with family with outpatient follow-up once patient medically cleared for discharge Request HC Surrog/Guard Advoc?: No Abhi Alonso MD Aug 17, 2017 14:27
[2017-08-17] MEDS ORDERED: LISI10TA3 PO (14:51)
[2017-08-17 20:00] VITALS: BP 170/72; PULSE 80; RESP 18; TEMP 98; O2SAT 97
[2017-08-18 02:00] VITALS: BP 167/70; PULSE 74; RESP 18; TEMP 98.1; O2SAT 92
[2017-08-18 06:08] VITALS: BP 193/80; PULSE 73; RESP 18; TEMP 98.3; O2SAT 95
[2017-08-18] MEDS: LEVOTHYROXINE SODIUM 125 MCG TAB PO SCH (06:37)
[2017-08-18] MEDS ORDERED: IBUPROFEN 600 MG TAB PO ONE (06:45)
[2017-08-18] MEDS ORDERED: LISINOPRIL 10 MG TAB PO ONE (06:45)
[2017-08-18] MEDS ORDERED: cloNIDine HCL 0.1 MG TAB PO PRN (08:00)
[2017-08-18] MEDS: INSULIN ASPART SUPPLEMENTAL SCALE SQ SCH ×3 (08:00→16:04)
[2017-08-18 08:29] VITALS: BP 171/82; PULSE 70
[2017-08-18] MEDS ORDERED: LISINOPRIL 20 MG TAB PO SCH (09:00)
--- NOTE | 2017-08-18 09:02 | HHI.PR ---
Subjective Remarks Follow-up visit HTN with hypotension, DM, hypothyroidism. Patient seen and examined today in her bedroom. States she is feeling fine. Denies any dizziness or headaches. Reports elevated BP this am. Denies pain and discomfort. Denies SOB/ dyspnea. Denies chest pain, palpitations. Denies fevers, chills, n/v/d. Objective Vitals Vital Signs Date Time Temp Pulse Resp B/P (MAP) Pulse Ox O2 Delivery O2 Flow Rate FiO2 08/18/17 08:29 70 171/82 (111) 08/18/17 06:08 98.3 73 18 193/80 (117) 95 08/18/17 02:00 98.1 74 18 167/70 (102) 92 08/17/17 20:00 98.0 80 18 170/72 (104) 97 Manual Cuff/Auscultation Automatic Cuff Objective Remarks GENERAL: This is a well-nourished, well-developed patient, in no apparent distress. SKIN: Warm and dry. HEENT: Normocephalic. Pupils equal round and reactive. Nose without bleeding. Airway patent. NECK: Trachea midline. Supple. CARDIOVASCULAR: Regular rate and rhythm without murmurs, gallops, or rubs. RESPIRATORY: Clear to auscultation. Breath sounds equal bilaterally. No wheezes , rales, or rhonchi. GASTROINTESTINAL: Abdomen soft, non-tender, nondistended. Bowel Sounds normoactive x4. MUSCULOSKELETAL: Extremities without clubbing, cyanosis, or edema. NEUROLOGICAL: Awake and alert. Oriented to time, place, person. No focal neuro deficit. Moves all extremities. Normal speech. A/P Problem List: (1) HTN (hypertension) ICD Code: I10 - Essential (primary) hypertension (2) DM type 2 (diabetes mellitus, type 2) ICD Code: E11.9 - Type 2 diabetes mellitus without complications (3) Severe recurrent major depression without psychotic features ICD Code: F33.2 - Major depressive disorder, recurrent severe without psychotic features Assessment and Plan 52-year-old [place] female with a past medical history of hypertension, diabetes and hypothyroidism who was admitted under [facility] act with depression and suicidal ideation to the inpatient psychiatric unit. Hospitalist services have been consulted for medical management. Depression Suicidal ideation Anxiety - Management per psychiatric team Dizziness - ? related to hypotension - Fall precautions - may try meclizine - Orthostatic BP is does not show any drop in blood pressure - Improved Hypertension, uncontrolled - episodes of hypotensive, symptomatic. Home medications of amlodipine 10 mg daily, Lisinopril 10 mg daily and Lasix 40 mg daily were held - Past day, patient with now elevated BP. Lisinopril restarted and increased. - Lisinopril 20mg daily, norvasc 10mg daily, HCTZ 12.5mg daily. Clonidine PRN - Patient reports she takes Lasix at home for on and off leg swelling. She attributes leg swelling with diet. States she like juice and gatorade. Discuss increase sodium intake with fruit juices and food may contribute to swelling. - Will start patient with HCTZ lower does as it has better BP control compared loop diuretics, this will also provide effect of diureses. Discuss with patient. - If patient is to be dc'd today, prescribed medication for BP management includes current regimen in in patient. She will follow up with the free clinic and advice to check her labs in 1 month. - Patient is also recommended to start ASA 81mg for cardiac protection and stroke prevention related to her risk factors. Possibly pre renal secondary to hypertensive nephropathy vs diabetic nephropathy DM 2, controlled Diabetic neuropathy - Hemoglobin A1c 7.0 - Blood sugars adequately controlled - Diabetic heart healthy diet - Continue patient on metformin 500 mg twice a day - Accu-Chek - Insulin sliding scale - Physical Therapy discharged patient as she is ambulatory and without assist in ADLs Hypothyroidism - Continue patient on home dose of levothyroxine - TSH 4.480 Dyslipidemia - ASCVD 10 yr risk 25% with recommendation of high intensity statin therapy - LFTs WNL - Discussed initiation of statin therapy which patient is agreeable to. She is concerned about cost of medication. Also discussed lifestyle modifications including regular home exercise program, dietary changes, smoking cessation. Consult case management. - Lipitor 40mg po daily. Patient will need a follow-up with PCP and have lipid panel rechecked in 2-3 months. Tobacco use - Discussed importance of smoking cessation - Nicotine patch Vitamin D deficiency - Continue oral supplementation - Patient will need to have vitamin D level rechecked by her PCP in 3 months Discussed with patient, nursing, and Dr. Pretty Discharge Planning If patient is to be dc'd today, prescribed medication for BP management includes current regimen in in patient. She will follow up with the free clinic and advice to check her labs in 1 month. Stable from Hospitalist standpoint. Clear for Discharge. Nikolas Hollis Aug 18, 2017 9:01 am
[2017-08-18] MEDS: metFORMIN HCL 500 MG TAB PO SCH (09:03)
[2017-08-18] MEDS: ATORVASTATIN 40 MG TAB PO SCH (09:03)
[2017-08-18] MEDS: busPIRone HCL 10 MG TAB PO SCH (09:04)
[2017-08-18] MEDS: DULoxetine HCl DR 60 MG CAP PO SCH (09:04)
[2017-08-18] MEDS ORDERED: AMLO10TA2 PO (09:14)
[2017-08-18] MEDS ORDERED: VITA1000 PO (09:14)
[2017-08-18] MEDS ORDERED: ATOR40TA16 PO (09:14)
[2017-08-18] MEDS ORDERED: ASPI81TA11 PO (09:14)
[2017-08-18] MEDS ORDERED: LEVO125T4 PO (09:14)
[2017-08-18] MEDS ORDERED: METF500T PO (09:14)
[2017-08-18] MEDS ORDERED: HYDROCHLOROTHIAZIDE 25 MG TAB PO SCH (09:15)
[2017-08-18] MEDS: CHOLECALCIFEROL (VIT D3) 1000 UNIT TAB PO SCH (10:00)
[2017-08-18] MEDS ORDERED: DULO1CAP3 PO (11:20)
[2017-08-18] MEDS ORDERED: HYDR12.57 PO (11:20)
[2017-08-18] MEDS ORDERED: BUSP10TA PO (11:20)
[2017-08-18] MEDS ORDERED: FURO40TA PO (11:20)
--- NOTE | 2017-08-18 11:37 | HHI.DS ---
Psychiatry Discharge Summary Inpatient Psychiatric care?: Yes Advance Directive: No Reason Not Provided: Provided to patient Mental Health AdvanceDirective: No Health Care Proxy: No Admission Admission Date Aug 12, 2017 at 11:40 Admission Diagnosis: (1) Severe recurrent major depression without psychotic features ICD Code: F33.2 - Major depressive disorder, recurrent severe without psychotic features Brief History Patient is a 52-year-old Northern [place] female who speaks moderately broken Indian comes here under a [place] act by the [facility]'s office dated at 11:17 AM that document reviewed and basically stating that the deputy responded to [address] reference to a welfare check to do the notes found by the Anupam Warren in the hotel these notes are written in Northern Irish one of the notes stated "you do not as to very, IM living voluntary. We will nose may be there where my family made meet me" police officers made several attempts to contact the patient and her residents which yielded negative results. Her vehicle was parked in the driveway with windows down contact was made with a Sgt. on how to proceed surgery problems advised that we will have the fire department come out and forced entry into the residents through the back sliding door. Once remained entry patient was bent over the sink in the bedroom. She advised she did not feel very good and wanted to be left alone. I asked her about the letters at the hotel she advised that she was thinking about suicide. She also advised that she had thought about this before and wanted to hang herself. She also advised that she takes medicine for depression there is substantial likelihood that without care or treatment she will cause bodily harm to herself with near future. Patient seen screened in the ED urine toxicology negative blood level negative. Patient seen in room 2600 with medical student hillary. Patient is a short stocky somewhat disheveled female who speaks broken Indian. Stating of markedly dejected [place] will also somewhat histrionic with deep sighing breaths some moaning noted with poor eye contact. She is markedly tangential and circumstantial needing significant redirection by me to stay on topic. She states she lives with her of many years. It appears at times he may be somewhat authoritarian with her. She states she has a 20 year old son who lives locally but not with them. She makes some oblique statements about feeling depressed also by the fact that she is only one child. She may have had therapeutic abortions at the request of her . 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 Is also history of depression and suicide in the family with with her twin sister committing suicide in the of her parents. She denies alcohol or drug use with this she denies voices or visions. However she does state screen seen some type of a therapist with living in [place] and she may of had some psychiatric hospitalization in that area. At the present time patient does meet criteria for involuntary psychiatric hospitalization of the [place] act I'll do first opinion request second opinion that foot she does have capacity sign for medications. She received Cymbalta for a period of time at a clinic in but now where she paid $7. She may have switched counselors leading to increased payment for that medication. We need to investigate that. In the meantime we will restart her on her Cymbalta, since she stated she did well on that, and 60 mg daily. We will also add BuSpar 10 mg twice a day to the regimen. Continue her med reconciliation medical medications with the hospitalist also consult with us. Patient does have a abnormal EKG we will the hospitalist review that also. Hopeless to be fairly short stay recovery return to the family home with outpatient care of the community Tobacco Use In Past 30 Days: No Tobacco Past 30 Days Alcohol Use: Never Hospital Course Patient's depression mood lability since minimization slowly resolved with her participation in milieu and compliance with medication. Labile blood pressure has been addressed by the medicine service. She has had good talks with her . She now denies suicidality homicidality voices or visions. States willingness to be compliant with her psychotropic medications along with her blood pressure medicines, and with her follow-up appointments with mental health care and medical care. Thus will be discharged today to her family Results Blood Pressure 171 / 82 Vital Signs Date Time Temp Pulse Resp B/P (MAP) Pulse Ox O2 Delivery O2 Flow Rate FiO2 08/18/17 08:29 70 171/82 (111) 08/18/17 06:08 98.3 18 95 Laboratory Results Test 08/13/17 08:25 Cholesterol Level 227 MG/DL (120-200) HDL Cholesterol 38.4 MG/DL (40.0-60.0) Hemoglobin A1c 7.0 % (4.3-6.0) LDL Cholesterol 116 MG/DL (0-99) Triglycerides Level 362 MG/DL (42-150) Summary of Procedures None done Pending results at discharge: No Medications # of Antipsychotic meds at D/C: 0 Approp Antipsych med options 1 - Minimum of three failed multiple trials of monotherapy. 2 - Documented plan to taper to monotherapy due to previous use of multiple meds OR cross-taper in progress at D/C. 3 - Documentation of augmentation of Clozapine. 4 - Justification other than those listed in allowable values 1-3, document here : Discharge Discharge Date: Aug 18, 2017 Discharge Diagnosis: (1) Severe recurrent major depression without psychotic features Diagnosis: Principal ICD Code: F33.2 - Major depressive disorder, recurrent severe without psychotic features Pt Condition on Discharge: Stable Discharge Disposition: Discharge Home Discharge Instructions Diet Instructions: Diabetic Diet Additional Diet Instructions: 1800-calorie Activities you can perform: Regular-No Restrictions Scheduled Appointment: Dusty Cochran Discharge Time > 30 minutes Mental Status Examination Appearance: Appropriate, Disheveled Consciousness: Alert Orientation: x4 Motor Activity: Normal gait, Other (no complaints of leg weakness and instability is using a wheelchair) Speech: Hesitant, Slow, Other (speech very little Indian) Language: Adequate Fund of Knowledge: Adequate Attention and Concentration: Adequate Memory: Unremarkable Mood: Sad, Anxious Affect: Blunt Thought Process & Associations: Intact Thought Content: Appropriate Hallucination Type: None Delusion Type: None Suicidal Ideation: No Suicidal Plan: No Suicidal Intention: No Homicidal Ideation: No Homicidal Plan: No Homicidal Intention: No Insight: Fair Judgment: Poor Discharge/Advance Care Plan Health Problems: (1) Severe recurrent major depression without psychotic features Goals to promote your health * To prevent worsening of your condition and complications * To maintain your health at the optimal level Directions to meet your goals Take your medications as prescribed Follow your dietary instruction Follow activity as directed Keep your appointments as scheduled Take your immunizations and boosters as scheduled If your symptoms worsen call your PCP, if no PCP go to Urgent Care Center or Emergency Room For 24/05 questions related to your inpatient stay or results of tests pending at discharge, please contact Dr. Abhi Alonso at Smoking is Dangerous to Your Health. Avoid second hand smoking Abhi Alonso MD Aug 18, 2017 11:37
[2017-08-18 12:19] VITALS: BP 142/83; PULSE 84
[2017-08-19] MEDS ORDERED: HYDROCHLOROTHIAZIDE 12.5 MG CAP PO SCH (09:00)
== END 2017-08-18 17:30 | disposition home or self-care (01) | DRG 885 ==
LOC: NEPJ 12:26 → NEDA 08-12 11:40 → H260 08-12 13:23
PROVIDERS: ADMIT Psychiatry & Neurology Psychiatry; ATTEND Psychiatry & Neurology Psychiatry
DX: F33.2 Major depressive disorder, recurrent severe without psychotic features (principal); E11.40 Type 2 diabetes mellitus with diabetic neuropathy, unspecified; Z79.84 Long term (current) use of oral hypoglycemic drugs; I95.9 Hypotension, unspecified; E87.1 Hypo-osmolality and hyponatremia; Z68.41 Body mass index [BMI] 40.0-44.9, adult; E66.9 Obesity, unspecified; I10 Essential (primary) hypertension; Z81.8 Family history of other mental and behavioral disorders; E03.9 Hypothyroidism, unspecified; Z72.0 Tobacco use; E78.5 Hyperlipidemia, unspecified; E55.9 Vitamin D deficiency, unspecified; R10.11 Right upper quadrant pain
CPT/HCPCS: 80048; 80053; 80061; 80076; 80307; 81001; 82306; 82607; 82948; 83036; 84443; 85025; 93005; J1815